=== PATIENT | male | born 1985 | race Caucasian/White ===

== ENCOUNTER 2017-05-18 19:59 | Emergency (ER) | payer OTHER ==
[2017-05-18 20:18] VITALS: BP 117/90; PULSE 68; TEMP 98.5; BMI 32.3
[2017-05-18] MEDS ORDERED: DIPHTH,PERTUSS(ACELL),TET 0.5 ML DISP.SYRIN IM ONE (20:25)
--- NOTE | 2017-05-18 21:01 | PDOC ---
History of Present Illness - General Chief Complaint: Laceration Stated Complaint: LACERATION Time Seen by Provider: 05/18/17 20:22 History Source: Patient Exam Limitations: No Limitations - History of Present Illness Initial Comments: 05/18/17 20:56 31-year-old male presents to the ED with laceration to his left second digit after cutting open a box with a knife patient states unknown last tetanus and denies any limited range of motion with movement of his finger. Patient denies any decreased sensation the stool of injury Timing/Duration: 1-3 hours Severity: mild Associated Symptoms: reports: denies symptoms Past History - Travel Traveled outside of the country in the last 30 days: No - Past Medical History Allergies/Adverse Reactions: Allergies Allergy/AdvReac Type Severity Reaction Status Date / Time No Known Allergies Allergy Verified 05/18/17 20:16 Home Medications: Ambulatory Orders NK [No Known Home Medication] 05/18/17 COPD: Yes Other medical history: Pt denies - Suicide/Smoking/Psychosocial Hx Smoking History: Never smoked Have you smoked in the past 12 months: No Information on smoking cessation initiated: No Hx Alcohol Use: No Drug/Substance Use Hx: No Substance Use Type: None Lives with/in: parents Review of Systems - Review of Systems Able to Perform ROS?: Yes Musculoskeletal: No: Symptoms Reported Integumentary: Yes: See HPI Neurological: No: Symptoms reported Hematologic/Lymphatic: No: Symptoms Reported *Physical Exam - Vital Signs Last Vital Signs Temp Pulse Resp BP Pulse Ox 98.5 F 68 18 117/90 99 05/18/17 20:16 05/18/17 20:16 05/18/17 20:16 05/18/17 20:16 05/18/17 20:16 - Physical Exam General Appearance: Yes: Nourished, Appropriately Dressed. No: Apparent Distress Extremity: positive: Normal Capillary Refill, Normal Range of Motion. negative : Normal Inspection (noted 2.5 linear laceration to the palmar aspect of the DIP joint on the left second digit) Integumentary: positive: Normal Color, Warm, Moist Neurologic: positive: Motor Strength 5/5 (full range of motion of the left second digit) Procedures - Laceration/Wound Repair Left Finger Wound Length: to 2.5 cm Wound Explored: clean Wound's Depth, Shape: superficial, linear Irrigated w/ Saline: Yes Betadine Prep: Yes Anesthesia: 1% Lidocaine Amount of Anesthetic (ccs): 1 Wound Repaired With: Sutures Suture Size/Type: 5:0 Number of Sutures: 9 Sterile Dressing Applied: Yes (with bacitracin) Medical Decision Making - Medical Decision Making 05/18/17 20:59 Patient with laceration to left second digit. Laceration appeared to without difficulty. Patient to return in 2 weeks and given medical's finger splint to avoid movement of the digit. Patient aware to change bandage every day. *DC/Admit/Observation/Transfer Diagnosis at time of Disposition: Laceration of finger of left hand Qualifiers: Encounter type: initial encounter Finger: index finger Damage to nail status: without damage Foreign body presence: without foreign body Qualified Code(s): S61.211A - Laceration without foreign body of left index finger without damage to nail, initial encounter - Discharge Dispostion Disposition: HOME Condition at time of disposition: Improved - Referrals - Patient Instructions Printed Discharge Instructions: DI for Laceration Repair Additional Instructions: Change bandage daily as demonstrated here in the ER starting tomorrow. Wear finger splint to avoid bending the finger and follow-up in 2 weeks for suture removal - Post Discharge Activity
== END 2017-05-18 21:10 | disposition home or self-care (01) ==
LOC: JER 19:59
PROC: 3E0234Z Introduction of Serum, Toxoid and Vaccine into Muscle, Percutaneous Approach (ICD-10-PCS; principal; 2017-05-18)
PROC: 0HQGXZZ Repair Left Hand Skin, External Approach (ICD-10-PCS; 2017-05-18)
DX: S61.211A Laceration without foreign body of left index finger without damage to nail, initial encounter (principal); W26.0XXA Contact with knife, initial encounter; Y93.89 Activity, other specified; Y92.89 Other specified places as the place of occurrence of the external cause; Y99.8 Other external cause status
CPT/HCPCS: 12001; 90471; 90715; 99281-25

== ENCOUNTER 2017-06-03 12:57 | Emergency (ER) | payer OTHER ==
[2017-06-03 13:14] VITALS: BP 133/55; PULSE 80; TEMP 98.8; BMI 33.0
--- NOTE | 2017-06-03 14:20 | PDOC ---
Suture Removal/Wound Check HPI - History of Present Illness Chief Complaint: Suture/Staple Removal(Here) Stated Complaint: STAPLE/SUTURE REMOVAL Time Seen by Provider: 06/03/17 13:18 History Source: Yes: Patient Exam Limitations: Yes: No Limitations Treated at: [facility] Date of Last ED visit: 05/18/17 - Previous ED Treatment Type of procedure performed on last visit: Yes: Laceration Repair Tetanus Immunization: Yes: Up to Date Antibiotics Prescribed: No Past History - Past Medical History Allergies/Adverse Reactions: Allergies Allergy/AdvReac Type Severity Reaction Status Date / Time No Known Allergies Allergy Verified 06/03/17 13:14 Home Medications: Ambulatory Orders NK [No Known Home Medication] 05/18/17 COPD: No - Suicide/Smoking/Psychosocial Hx Smoking History: Never smoked Have you smoked in the past 12 months: No Information on smoking cessation initiated: No Hx Alcohol Use: No Drug/Substance Use Hx: No Substance Use Type: None Suture Removal/Wound Check PE - Physical Exam Laceration/Wound Check Symptoms: reports: None Current Severity Level: None Maximum Severity Level: None Pain Localization: None Location of Laceration/Wound: left: Finger *Review of Systems - Review of Systems Constitutional: No: Symptoms Reported Integumentary: No: Symptoms Reported, Bruising, Erythema Neurological: No: Symptoms reported, Paresthesia, Tingling, Tremors Medical Decision Making - Medical Decision Making 06/03/17 14:18 A/P: here for suture removal, 9 sutures removed to dorsum of left second finger , is no erythema edema or secondary signs of infection, wound healed well. *DC/Admit/Observation/Transfer Diagnosis at time of Disposition: Visit for suture removal - Discharge Dispostion Disposition: HOME Condition at time of disposition: Stable Admit: No - Referrals - Patient Instructions Printed Discharge Instructions: DI for Suture Removal Additional Instructions: Follow-up as needed. - Post Discharge Activity
== END 2017-06-03 14:26 | disposition home or self-care (01) ==
LOC: JERFT 12:57
DX: Z48.02 Encounter for removal of sutures (principal)
CPT/HCPCS: 99281-25